=== PATIENT | female | born 1975 | race Caucasian/White ===

== ENCOUNTER → 2017-12-07 09:42 | Outpatient (CLI) | payer OTHER, SELFPAY ==
[2017-12-07 12:27] LABS: Anion Gap 7 (5-15); BUN 13 mg/dL (7-18); BUN/Creat Ratio 14.2 RATIO (10-20); Calcium,Total 8.5 mg/dL (8.5-10.1); Chloride 104 mmol/L (98-107); Cholesterol 203 mg/dL (200); Creatinine, Serum 0.91 mg/dL (0.55-1.02); EST Glomerular Filtration Rate 71 mL/min (>60); Est Glom Filt Rate - Afr Amer 86 mL/min (>60); Glucose 90 mg/dL (74-106); High Density Lipoprotein 43 mg/dL; Potassium 4.1 mmol/L (3.5-5.1); Sodium Level 139 mmol/L (136-145); Thyroid Stim Hormone (TSH) 1.68 uIU/mL (0.358-3.74); Triglycerides 137 mg/dL; Very Low Density Lipoprotein 27 mg/dL (5-40)
== END ==
PROVIDERS: Family Provider Family Medicine; PCP Family Medicine; Visit Provider Family Medicine
DX: Z13.1 Encounter for screening for diabetes mellitus (principal); Z13.220 Encounter for screening for lipoid disorders; Z13.29 Encounter for screening for other suspected endocrine disorder; Z13.21 Encounter for screening for nutritional disorder
CPT/HCPCS: 36415; 80048; 80061; 82306; 84443

== ENCOUNTER → 2018-02-01 08:57 | Outpatient (CLI) | payer OTHER, SELFPAY ==
[2018-02-06 11:17] LABS: HPV HC, High Risk Negative (Negative)
== END ==
PROVIDERS: PCP Family Medicine; Visit Provider Obstetrics & Gynecology
DX: Z12.4 Encounter for screening for malignant neoplasm of cervix (principal)
CPT/HCPCS: 87624; 88175; G0145

== ENCOUNTER → 2018-03-28 07:53 | Outpatient (CLI) | payer OTHER, SELFPAY ==
--- NOTE | 2018-03-28 07:57 | BI_ITS ---
MAMMOGRAPHY - BILATERAL SCREENING REASON FOR EXAM: Female, 42 years old. Routine annual screening examination. PERTINENT HISTORY: Mother with breast cancer. TECHNIQUE: Digital bilateral breast nadine (3D mammographic acquisition) in the CC and MLO projections. 2-D mediolateral oblique (MLO) and craniocaudad (CC) views of both breasts were obtained. CAD: Full Field Digital Mammography with Computer Added Detection was performed. COMPARISON: Comparison is made with prior study dated March 27, 2017 and August 27, 2015. FINDINGS: Breast Composition: There are scattered areas of fibroglandular density. There are no dominant masses or suspicious calcifications. No other significant abnormalities are identified. There has been no significant change since the prior study. BI/SCREENING MAMM (CAD), BILAT IMPRESSION: Stable bilateral screening mammogram. Yearly follow-up mammogram recommended. (A) ASSESSMENT CATEGORY: BIRADS Category 1: Negative. A letter regarding these results will be sent to the patient by the facility within 30 days. Approximately 10% of breast cancers are not detected by mammography. A normal mammogram should not delay biopsy of a clinically suspicious abnormality. [id number] Electronically Signed: Florian Anaya MD at 8:49 EST Tel [phone], Service support ,
--- OUTSIDE RECORDS SUMMARY | 2018-05-14 00:57 | XMS RPT_ITS ---
:1975 Author Organization [facility] Care Team Providers Name Role Phone Rodrick Mccarty Attending Unavailable Rakesh West Primary Care Unavailable Referred, Self Attending Unavailable Rakesh West Attending Unavailable Rakesh West Primary [facility] Unavailable Rodrick Mccarty Attending Unavailable PROBLEMS PROBLEMS DATE TYPE CONDITION / CODE ATTENDING STATUS SOURCE 02/01/2018 Unknown Z12.4 - Rodrick Mccarty Active [place] Encounter for Community screening for Hospital malignant Repository neoplasm of cervix / Z12.4(ICD-10) PROCEDURES PROCEDURES No Procedure Records FoundRESULTS RESULTS SCREENING MAMM (CAD), Observed: 03/28/2018 Status: F Source: [place] BILAT 7:57 AM [facility] REPOSITORY [facility] Imaging Services [address] [place] [address] SCREENING MAMM (CAD), BILAT MR#: [id number] Acct: [id number] Name: GARCIA RICKETTS Rep #: [id number] : 1975 F 42 From: Florian Anaya MD PCP: Rakesh West MD Status: REG CLI Study: SCREENING MAMM (CAD), BILAT Date of Exam: 03/28/18 Exam# [id number] Ordering Dr: Rodrick Mccarty MD MAMMOGRAPHY - BILATERAL SCREENING REASON FOR EXAM: Female, 42 years old. Routine annual screening examination. PERTINENT HISTORY: Mother with breast cancer. TECHNIQUE: Digital bilateral breast nadine (3D mammographic acquisition) in the CC and MLO projections. 2-D mediolateral oblique (MLO) and craniocaudad (CC) views of both breasts were obtained. CAD: Full Field Digital Mammography with Computer Added Detection was performed. COMPARISON: Comparison is made with prior study dated March 27, 2017 and August 27, 2015. FINDINGS: Breast Composition: There are scattered areas of fibroglandular density. There are no dominant masses or suspicious calcifications. No other significant abnormalities are identified. There has been no significant change since the prior study. BI/SCREENING MAMM (CAD), BILAT IMPRESSION: Stable bilateral screening mammogram. Yearly follow-up mammogram recommended. (A) ASSESSMENT CATEGORY: BIRADS Category 1: Negative. A letter regarding these results will be sent to the patient by the facility within 30 days. Approximately 10% of breast cancers are not detected by mammography. A normal mammogram should not delay biopsy of a clinically suspicious abnormality. [id number] Electronically Signed: Florian Anaya MD at 8:49 EST Tel [phone], Service support , CC: Rakesh West MD; Rodrick Mccarty MD Shuttle Driver: Signed PAP I-G HPV HI Collected: 02/01/2018 Status: F Source: [place] RISK 8:30 AM [facility] REPOSITORY Order Comment: CYTOLOGY INFORMATION: - CLINICAL INFORMATION: - DATE LMP/MENOPAUSE: 01-14-18 LMP - COLLECTION VIAL: Thin Prep Vial - POWDER ROOM ATTENDANT SOURCE: CERVICAL/ENDOCERVICAL - COLLECTION TECHNIQUE: BRUSH/SPATULA Specimen Comment: [id number] Specimen Comment: Source.............Cervix;Endocervix Specimen Comment: LMP / Prev Treat...[id number] Specimen Comment: No. of containers..01 ThinPrep Vial TYPE CODE TESTS RESULT OUT OF RANGE REFERENCE UNITS LAB L7400.0800 . Normal DIAGN Comment Result Comment: NEGATIVE FOR INTRAEPITHELIAL LESION AND MALIGNANCY. LAB L7400.0900 . Normal ADEQ Comment Result Comment: Satisfactory for evaluation. Endocervical and/or squamous metaplastic cells (endocervical component) are present. Areas of partially obscuring inflammtory exudate are present. LAB L7400.1400 . Normal PERFORM Comment Result Comment: Margie Shahid, Meteorological Engineer (ASCP) LAB L7400.2575 . Normal TEST METHOD Comment Result Comment: This liquid based ThinPrep(R) pap test was screened with the use of an image guided system. LAB L7400.2600 . Normal . COMM LAB L7400.2700 . Normal PAPSMR Comment Result Comment: The Pap smear is a screening test designed to aid in the detection of premalignant and malignant conditions of the uterine cervix. It is not a diagnostic procedure and should not be used as the sole means of detecting cervical cancer. Both false-positive and false-negative reports do occur. LAB L7400.2950 Negative Normal HPV Negative HC,HGH RISK Result Comment: This high-risk HPV test detects thirteen high-risk types (16/18/31/33/35/39/45/51/52/56/58/59/68) without differentiation. Performed at: [address] [id number] Vision Impaired Teacher: Shannan Self MD, Phone: [phone] Performed at: =[address] [id number] Vision Impaired Teacher: Shannan Self MD, Phone: [phone] Performed By: #### L7400.0375 #### [facility] (refer to report for specific site) refer to report for address and phone number VITAMIN D,25 HYDROXY Collected: 12/07/2017 Status: F Source: [place] 9:45 AM [facility] REPOSITORY Order Comment: Order Date: 12/05/17 Order Info: [id number] - VITD25 TYPE CODE TESTS RESULT OUT OF REFERENCE UNITS RANGE LAB L506.1000 29.95-100.01 ng/mL Low Vitamin D 28.0 25-OH Result Comment: Vitamin D 25(OH) Status Range Deficiency <20 ng/mL (50nmol/L) Insuffciency 20 - 30 ng/mL (50 - 75 nmol/L) Sufficiency 30 - 100 ng/mL (75 - 250 nmol/L) Toxicity >100 ng/mL (>250 nmol/L) Performed By: #### L506.1000, L500.2500, L500.4100, L501.9520 #### [facility] [address] [place], [address] BASIC METABOLIC Collected: 12/07/2017 Status: F Source: [place] PROFILE (BMP) 9:45 AM [facility] REPOSITORY Order Comment: Order Date: 12/05/17 Order Info: [id number] - BMP Order Info: [id number] - LIPID Order Info: 3016-3 - TSH TYPE CODE TESTS RESULT OUT OF RANGE REFERENCE UNITS LAB L501.0100 74-106 mg/dL Normal GLU 90 Result Comment: Please note revised GLUCOSE reference range effective 2017. LAB L501.1000 7-18 mg/dL Normal BUN 13 LAB L501.1100 0.55-1.02 mg/dL Normal CREAT,SERUM 0.91 Result Comment: The validity of the calculated GFR AND GFRAA in patients over 70 years has not been determined. Clinical correlation is essential. LAB L501.1110 >60 mL/min Normal EST GFR 71 Result Comment: Non- GFR Calc LAB L501.1115 >60 mL/min Normal EST GFR - AA 86 Result Comment: GFR Calc LAB L501.1300 10-20 RATIO Normal BUN/CRE 14.2 LAB L501.2200 8.5-10.1 mg/dL CA Normal 8.5 LAB L501.5300 136-145 mmol/L NA Normal 139 LAB L501.5600 3.5-5.1 mmol/L K Normal 4.1 LAB L501.5900 98-107 mmol/L CL Normal 104 LAB L501.6100 21.0-32.0 mmol/L Normal CO2 28.0 LAB L501.6200 5-15 Normal GAP 7 Performed By: #### L506.1000, L500.2500, L500.4100, L501.9520 #### [facility] [address] [place], [place], [id number] LIPID PROFILE Collected: 12/07/2017 Status: F Source: [place] 9:45 AM [facility] REPOSITORY Order Comment: Order Date: 12/05/17 Order Info: 0667-1 - BMP Order Info: [id number] - LIPID Order Info: 3016-3 - TSH TYPE CODE TESTS RESULT OUT OF RANGE REFERENCE UNITS LAB L501.4900 200 mg/dL High CHOL 203 Result Comment: <200 mg/dL Desirable 200-240 mg/dL Borderline >240 mg/dL High Risk LAB L501.5000 mg/dL Normal TRIG 137 Result Comment: The drugs N-Acetylcysteine and Metamizole may falsely depress this assay. Serum Triglycerides Reference Interval Normal <150 mg/dL Borderline high 150 - 199 mg/dL High 200 - 499 mg/dL Very High > or = 500 mg/dL LAB L501.6400 mg/dL Normal HDL 43 Result Comment: The drugs N-Acetylcysteine and Metamizole may falsely depress this assay. Reference Range HDL <40 mg/dL Low HDL Cholesterol HDL >or= 60 mg/dL High HDL Cholesterol LAB L501.6500 0-130 mg/dL High LDL 133 LAB L501.6600 5-40 mg/dL Normal VLDL 27 Performed By: #### L506.1000, L500.2500, L500.4100, L501.9520 #### [facility] [address] [place], [place], [id number] THYROID STIM HORMONE Collected: 12/07/2017 Status: F Source: [place] (TSH) 9:45 AM [facility] REPOSITORY Order Comment: Order Date: 12/05/17 Order Info: 0667-1 - BMP Order Info: 74997-8 - LIPID Order Info: 3016-3 - TSH TYPE CODE TESTS RESULT OUT OF RANGE REFERENCE UNITS LAB L501.9520 0.358-3.74 uIU/mL Normal TSH 1.68 Performed By: #### L506.1000, L500.2500, L500.4100, L501.9520 #### [facility] [address] [place], [address] ALLERGIES ALLERGIES DATE TYPE / CODE NAME / CODE REACTION SEVERITY SOURCE 08/05/2015 Drug No Known Unknown [facility] Allergy/4160 Allergies/F00 Hospital 56848(SNOMED 4703091(RXNOR Repository CT) M) ENCOUNTERS ENCOUNTERS ADMIT/DISCHARGE ACCOUNT ADMITTING ENCOUNTER LOCATION SOURCE NUMBER CLASS 05/04/2018 [id number] [place] [facility] ing:MASS Repository 03/28/2018 [id number] Ambulatory [place] 8 [facility] ing:OPBI Repository 02/01/2018 [id number] Amb[place] [facility] ing:LABSPEC Repository 12/07/2017 [id number] [facility] ing:MFPLAB Repository PAYERS PAYERS ENCOUNTER GUARANTOR PAYER SUBSCRIBER SOURCE 05/04/2018 GADIEL [id number] Primary NOT GIVENUNK [place] Insurance:SELF PAY [facility] [address]Vym: (330) Number: Effective Repository [phone] () Date:2017-06-28 03/28/2018 GADIEL [id number] Primary GADIEL RODRIGUEZB: [place] [facility] Insurance:[id number] Number: [facility] [address]Esq: (330) [id number] Repository [phone] () e Date:3292-03-89[address] [place] [address]SU: 03/28/2018 Secondary NOT GIVENUNK [place] Insurance:SELF PAY [facility] Number: Effective Repository Date:2018-02-08 02/01/2018 Gadiel [id number] Primary Gadiel MccuneDOB: [place] N Jonathan Chapvaleria Insurance[id number] Number: Hospital [id number]: (330 [id number] Repository [phone] () e Date:[id number] [address] [address]MY: 02/01/2018 Secondary NOT GIVENUNK [place] Insurance[facility]SELF [facility] Number: Effective Repository Date:2018-02-01 12/07/2017 Gadiel Ricketts8841 Primary Gadiel MccuneDOB: [place] N Jonathan Chapvaleria Insurance:[place] [id number], [place] icy Number: Hospital [id number]: (330 [id number] Repository [phone] () e Date:[id number] [address] [address]EH: 12/07/2017 Secondary NOT GIVENUNK [place] Insurance:SELF PAY [facility] Number: Effective Repository Date:2017-12-07
== END ==
PROVIDERS: PCP Family Medicine; Visit Provider Obstetrics & Gynecology
DX: Z12.31 Encounter for screening mammogram for malignant neoplasm of breast (principal)
CPT/HCPCS: 77063; 77067

== ENCOUNTER → 2018-11-06 16:28 | Outpatient (CLI) | payer OTHER, SELFPAY ==
--- NOTE | 2018-11-06 16:32 | RAD_ITS ---
HISTORY: Neck pain and left cervical radiculopathy XR Spine Cervical 4 or 5 Views TECHNIQUE: 5 views # of images incl. paperwork: 5 COMPARISON: 07/05/2016. FINDINGS: BONES: Cervical spine is in normal anatomic alignment. No acute fracture or subluxation. Odontoid process is intact. Cervical vertebra are normal in height. Unremarkable vertebral body morphology. DISCS: Mild disc space narrowing at C6-C7. Remaining disc spaces are well preserved. Oblique views demonstrate patent neural foramina bilaterally without bony encroachment. SOFT TISSUES: Prevertebral soft tissues are within normal limits. RAD/Cerv Spine 4 or 5 Views IMPRESSION: 1. Mild disc space narrowing at C6-C7, which is new when compared to June 2016. 2. Otherwise, unremarkable exam. at 2005 Reported and signed by: Elvin Castro MD Electronically Signed: Elvin Castro MD at 20:04 EDT Tel , Service support ,
== END ==
PROVIDERS: Family Provider Family Medicine; PCP Family Medicine; Referring Provider Family Medicine; Visit Provider Family Medicine
DX: M54.2 Cervicalgia (principal)
CPT/HCPCS: 72050

== ENCOUNTER 2018-12-27 08:30 | Outpatient (RCR) | payer OTHER, SELFPAY ==
--- NOTE | 2018-11-20 16:20 | HP.PTEVAL ---
Patient's Visit Information GARCIA BELLE is a 43 year old F referred to Physical Therapy by Marck West MD with a diagnosis of DDD C6-7. Date of Evaluation: 11/20/18 Physical Therapist: Orlando Bennett, PT, Cert MDT, OCS - Visit Plan Frequency: 2x /Week Duration: 4 Weeks Plan: PT INTEVENTIONS CHUNG EX'S,POSTURAL EX'S,MANUAL THERAPY CERVICAL TRACTION /STM,MOBILIZATION GR 3-4 C4-T2,MODALTIES - Subjective Findings: This 43 y/o female presents to physical therapy cervical pain and radicular since since July. Pateint symtoms started ache in left side ,then symptoms increased in left scapular region . Symptoms intermittant sharp pain ,no specific reason. Symptoms became worse after chiropractor adjustments. Patient c/o parathesia to fingers . Denies tinnutis /GLOVER/dizzness.Location pain left UT/scapular forearm to fingers ,occassionally left anterior chest. Seen DR tried predisone didnt help pain. Aggravating factors arms in front ,rotation to left ,flexion,sitting and working intermiitant. Alleviating rest,some MEDS. Patient symptoms affects ability to due [employer],job [employer]. Symptoms affect sleeping. Patient has had same symptoms one yuliet ago. PT helped last year. No n/o trauma.Patient had x-rays showed DDD c6-7,. VOCATION: DENTAL HYGINEIST. SOCIAL: - Pain Left Shoulder Pain Intensity (Out of 10): 6 Pain Intensity Range: 10 - Objective POSTURE: mild foward posture. NEURO: C/O parathesia/tingling fingers, reflexes C5-6-7 2/3,mytomes intact. PALAPTION: tender UT/levator. AROM: BUE WFL. MMT: BUE 4/5 grossly. CERVICAL ROM: flexion min loss,extension min loss,lateral flexion /rotation min loss ,retraction/protraction min loss - Special Tests C/S Radiculapathy - Left Upper limb tension test: Negative C/S Radiculapathy - Right Upper limb tension test: Negative C/S Radiculapathy - Left Spurlings: Negative C/S Radiculapathy - Right Spurlings: Negative C/S Radiculapathy - Left Cervical distraction: Negative C/S Radiculapathy - Right Cervical distraction: Negative Sharp Suzanne: Negative Vertebral Artery Test: Negative Alar Ligament Test: Negative Cervical Sitting: Protrusion - Mechanical Response: No effect Cervical Sitting: Protrusion - Symptoms During Testing: Increases Cervical Sitting: Protrusion - Symptoms After Testing: No worse Comments:: UT SCAPULAR Cervical Sitting: Retraction - Mechanical Response: No effect Cervical Sitting: Retraction - Symptoms During Testing: Increases Cervical Sitting: Retraction - Symptoms After Testing: Worse Comments:: UT/SCAPULAR Cervical Sitting: Retraction-Extension - Mechanical Response: No effect Cerv Sitting: Retraction-Extension - Symptoms During Testing: Increases Cerv Sitting: Retraction-Extension - Symptoms After Testing: Worse Comments:: UT/SCAPULAR Cervical Sitting: Sidebend Right - Mechanical Response: No effect Cervical Sitting: Sidebend Right - Symptoms During Testing: Increases Cervical Sitting: Sidebend Right - Symptoms After Testing: No worse Cervical Sitting: Sidebend Left - Mechanical Response: No effect Cervical Sitting: Sidebend Left - Symptoms During Testing: Increases Cervical Sitting: Sidebend Left - Symptoms After Testing: Worse Cervical Sitting: Rotation Right - Mechanical Response: No effect Cervical Sitting: Rotation Right - Symptoms During Testing: Increases Cervical Sitting: Rotation Right - Symptoms After Testing: No worse Cervical Sitting: Rotation Left - Mechanical Response: No effect Cervical Sitting: Rotation Left - Symptoms During Testing: Increases Cervical Sitting: Rotation Left - Symptoms After Testing: No worse Cervical Sitting: Flexion - Mechanical Response: No effect Cervical Sitting: Flexion - Symptoms During Testing: Increases Cervical Sitting: Flexion - Symptoms After Testing: Worse Cervical Lying: Retraction - Mechanical Response: No effect Cervical Lying: Retraction - Symptoms During Testing: Decreases Cervical Lying: Retraction - Symptoms After Testing: Better - Goals Goal 1:: Independant with HEP Goal Time Frame: 4-6 Weeks Goal 2:: Improve posture for job demands by to manage symptoms. Goal Time Frame: 4-6 Weeks Goal 3:: Pateint to improve cervical ROM for flexion of recovery with pain. Goal Time Frame: 4-6 Weeks Goal 4:: Patient to decrease cervical radiculopathy by 60% or greater to improve function. Goal Time Frame: 4-6 Weeks Goal 5:: Patient to improve neck owestry score by 5 points or greater to improve function. Goal Time Frame: 4-6 Weeks - Rehabilitation Potential Physical Therapy Diagnosis: This patient apperas to have cervical derrangement below elow with possible disc involvement with pain with motion test,postioning,worse with flexion and job demands unloaded retraction reduces pain. Rehabilitation Potential: Good - Anticipated Interventions Patient/Client Instruction: Educate patient on: Condition, Plan of Care For the Purpose of:: To decrease pain, To increase ROM, To improve muscle performance and motor function, To improve ability to perform ADL's, To increase tolerance to activity/condition/position, To improve ability of physical actions for home/community/work/leisure, To improve health of tissue, To decrease soft tissue restriction, To increase flexibility/ROM, To improve ability to perform tasks related to life management Therapeutic Exercise to Include: Strength training, Postural training, Flexibilty training, Chung Exercises For the Purpose of:: To decrease pain, To increase ROM, To improve muscle performance and motor function, To increase tolerance to activity/condition/position, To improve ability of physical actions for home/community/work/leisure, To improve health of tissue, To decrease soft tissue restriction, To increase flexibility/ROM, To reduce risk of recurrence, To improve ability to perform tasks related to life management Manual Therapy Techniques to Include: Mobilization Comment: CERVICAL TRACTION/ GRADE 3-4 C4-T2 For the Purpose of:: To decrease pain, To increase ROM, To improve health of tissue, To decrease soft tissue restriction, To increase flexibility/ROM TENS: Yes IF ES: Yes Thermo therapy (hot pack): Yes Ultrasound (thermal/non thermal): Yes Intermittent cervical traction: Yes For the Purpose of:: To decrease pain, To increase ROM, To improve nutrient delivery to tissue, To increase oxygenation perfusion, To improve health of tissue, To decrease soft tissue restriction Thank you for the opportunity to evaluate your patient. For Medicare and Medicare HMO plans, please review the plan of care and approve it. It will need to be FAXED BACK to us at [phone] for Medicare purposes. For Medicare only, by signing this I certify the plan of care. Please let me know if there are questions or concerns regarding this plan of care. Physician Signature: Date:
--- NOTE | 2019-01-30 12:21 | HP.PTDCNRP_ITS ---
HP - Discharge Summary (1) - Patient Information GARCIA BELLE was seen in my office for initial evaluation on 11/20/18. The following Plan of Care was established for this patient: Initial Frequency: 2x /Week Initial Duration: 4 Weeks - Anticipated Interventions Patient/Client Instruction: Educate patient on: Condition, Plan of Care For the Purpose of:: To decrease pain, To increase ROM, To improve muscle performance and motor function, To improve ability to perform ADL's, To increase tolerance to activity/condition/position, To improve ability of physical actions for home/community/work/leisure, To improve health of tissue, To decrease soft tissue restriction, To increase flexibility/ROM, To improve ability to perform tasks related to life management Therapeutic Exercise to Include: Strength training, Postural training, Flexibilty training, Shantel Exercises For the Purpose of:: To decrease pain, To increase ROM, To improve muscle performance and motor function, To increase tolerance to activity/condition/position, To improve ability of physical actions for home/community/work/leisure, To improve health of tissue, To decrease soft tissue restriction, To increase flexibility/ROM, To reduce risk of recurrence, To improve ability to perform tasks related to life management Manual Therapy Techniques to Include: Mobilization Comment: CERVICAL TRACTION/ GRADE 3-4 C4-T2 For the Purpose of:: To decrease pain, To increase ROM, To improve health of tissue, To decrease soft tissue restriction, To increase flexibility/ROM TENS: Yes IF ES: Yes Thermo therapy (hot pack): Yes Ultrasound (thermal/non thermal): Yes Intermittent cervical traction: Yes For the Purpose of:: To decrease pain, To increase ROM, To improve nutrient d elivery to tissue, To increase oxygenation perfusion, To improve health of tissue, To decrease soft tissue restriction This patient was last seen in our office . Pertinent comments regarding their Physical therapy will appear below: Pateint seen for PT for 9 visits for DDD cervical spien with radiculopathy with PT tx focusing on cercvical postural ex's,shantel ,drt needling,manual therapy . Symptoms with parathesai in arm is unchange with symptoms intermttant. At this point I will be discontinuing this patient from physical therapy. I would be happy to see this patient again in the future if found appropriate by the physician. Thank you! Orlando Bennett, PT, Cert MDT, OCS
== END 2018-12-27 19:00 | disposition home or self-care (01) ==
LOC: PT 08:30
PROVIDERS: Family Provider Family Medicine; PCP Family Medicine; Referring Provider Family Medicine; Visit Provider Family Medicine
DX: M50.323 Other cervical disc degeneration at C6-C7 level (principal)
CPT/HCPCS: 97035; 97110; 97140; 97162

== ENCOUNTER → 2019-02-28 09:00 | Outpatient (CLI) | payer OTHER, SELFPAY ==
[2019-02-28 10:29] LABS: Cholesterol 209 mg/dL (200); High Density Lipoprotein 62 mg/dL; Triglycerides 70 mg/dL; Very Low Density Lipoprotein 14 mg/dL (5-40)
[2019-02-28 10:30] LABS: Vitamin D,25 Hydroxy 48.6 ng/mL (29.95-100.01)
== END ==
PROVIDERS: Family Provider Family Medicine; PCP Family Medicine; Referring Provider Family Medicine; Visit Provider Family Medicine
DX: Z13.220 Encounter for screening for lipoid disorders (principal); E55.9 Vitamin D deficiency, unspecified
CPT/HCPCS: 36415; 80061; 82306

== ENCOUNTER → 2019-05-08 07:38 | Outpatient (CLI) | payer OTHER, SELFPAY ==
[2019-04-24 08:33] VITALS: BMI 27.1
--- NOTE | 2019-05-08 07:40 | BI_ITS ---
MAMMOGRAPHY - BILATERAL SCREENING REASON FOR EXAM: Female, 43 years old. Routine annual screening examination. PERTINENT HISTORY: Non-contributory. TECHNIQUE: Digital bilateral breast preston (3D mammographic acquisition) in the CC and MLO projections. 2-D mediolateral oblique (MLO) and craniocaudad (CC) views of both breasts were obtained. CAD: Full Field Digital Mammography with Computer Added Detection was performed. COMPARISON: Comparison is made with prior study dated March 28, 2018 and March 27, 2017. FINDINGS: Breast Composition: There are scattered areas of fibroglandular density. There are no dominant masses or suspicious calcifications. No other significant abnormalities are identified. There has been no significant change since the prior study. BI/SCREEN MAMM (CAD) W/PRESTON BILAT IMPRESSION: Stable bilateral screening mammogram. Yearly follow-up mammogram recommended. (A) ASSESSMENT CATEGORY: BIRADS Category 1: Negative. A letter regarding these results will be sent to the patient by the facility within 30 days. Approximately 10% of breast cancers are not detected by mammography. A normal mammogram should not delay biopsy of a clinically suspicious abnormality. [id number] Electronically Signed: Florina Anaya, at 8:46 EST , Service support ,
== END ==
PROVIDERS: Family Provider Family Medicine; PCP Family Medicine; Referring Provider Nurse Practitioner Women's Health; Visit Provider Nurse Practitioner Women's Health
DX: Z12.31 Encounter for screening mammogram for malignant neoplasm of breast (principal)
CPT/HCPCS: 77063; 77067

== ENCOUNTER → 2020-03-22 | Outpatient (CLI) | payer OTHER, SELFPAY ==
[2019-04-24 08:33] VITALS: BMI 27.1
== END | disposition home or self-care (01) ==
PROVIDERS: PCP Family Medicine; Referring Provider Family Medicine; Visit Provider Family Medicine
DX: R30.0 Dysuria (principal)
CPT/HCPCS: 87086; 87088

== ENCOUNTER → 2020-04-29 | Outpatient (CLI) | payer OTHER, SELFPAY ==
[2020-04-29 09:07] VITALS: BMI 25.9
[2020-05-04 09:45] LABS: HPV APTIMA, High Risk Negative (Negative)
== END | disposition home or self-care (01) ==
LOC: LABSPEC 12:36
PROVIDERS: PCP Family Medicine; Referring Provider Nurse Practitioner Women's Health; Visit Provider Nurse Practitioner Women's Health
DX: Z12.4 Encounter for screening for malignant neoplasm of cervix (principal)
CPT/HCPCS: 87624; 88175; G0145

== ENCOUNTER → 2020-05-13 07:36 | Outpatient (CLI) | payer OTHER, SELFPAY ==
[2019-04-24 08:33] VITALS: BMI 27.1
[2020-04-29 09:07] VITALS: BMI 25.9
--- NOTE | 2020-05-13 07:43 | BI_ITS ---
MAMMOGRAPHY - BILATERAL SCREENING REASON FOR EXAM: Female, 44 years old. Routine annual screening examination. PERTINENT HISTORY: Mother with breast cancer. TECHNIQUE: Digital bilateral breast preston (3D mammographic acquisition) in the CC and MLO projections. 2-D mediolateral oblique (MLO) and craniocaudad (CC) views of both breasts were obtained. CAD: Full Field Digital Mammography with Computer Added Detection was performed. COMPARISON: Comparison is made with prior study dated 05/08/2019 and 03/28/2018. FINDINGS: Breast Composition: There are scattered areas of fibroglandular density. There are no dominant masses or suspicious calcifications. No other significant abnormalities are identified. There has been no significant change since the prior study. BI/SCRN MAMM (CAD)W/PRESTON BILAT IMPRESSION: Stable bilateral screening mammogram. Yearly follow-up mammogram recommended. (A) ASSESSMENT CATEGORY: BIRADS Category 1: Negative. A letter regarding these results will be sent to the patient by the facility within 30 days. Approximately 10% of breast cancers are not detected by mammography. A normal mammogram should not delay biopsy of a clinically suspicious abnormality. [id number] Electronically Signed: Florian Anaya MD at 8:21 EST , Service support ,
== END ==
PROVIDERS: PCP Family Medicine; Referring Provider Nurse Practitioner Women's Health; Visit Provider Nurse Practitioner Women's Health
DX: Z12.31 Encounter for screening mammogram for malignant neoplasm of breast (principal); Z80.3 Family history of malignant neoplasm of breast
CPT/HCPCS: 77063; 77067

== ENCOUNTER → 2020-05-18 | Outpatient (CLI) | payer OTHER, SELFPAY ==
[2020-04-29 09:07] VITALS: BMI 25.9
== END | disposition home or self-care (01) ==
LOC: LABSPEC 10:04
PROVIDERS: PCP Family Medicine; Referring Provider Family Medicine; Visit Provider Family Medicine
DX: Z20.822 Contact with and (suspected) exposure to COVID-19 (principal)
CPT/HCPCS: 87635; U0005; U0003

== ENCOUNTER → 2020-09-08 08:36 | Outpatient (CLI) | payer OTHER, SELFPAY ==
[2020-04-29 09:07] VITALS: BMI 25.9
[2020-09-08 10:37] LABS: ALB/GLOB Ratio 1.1 RATIO (0.9-2.4); AST(SGOT) 26 U/L (15-37); Alanine Aminotransfer ALT/SGPT 32 U/L (13-56); Albumin, Serum 3.9 g/dL (3.2-5.0); Alkaline Phosphatase 78 U/L (45-117); Anion Gap 3 (5-15); BUN 17 mg/dL (7-18); BUN/Creat Ratio 19.8 RATIO (10-20); Calcium,Total 8.8 mg/dL (8.5-10.1); Chloride 105 mmol/L (98-107); Cholesterol 232 mg/dL (200); Creatinine, Serum 0.86 mg/dL (0.55-1.02); EST Glomerular Filtration Rate 76 mL/min (>60); Est Glom Filt Rate - Afr Amer 91 mL/min (>60); Globulin 3.4 g/dL (2.2-4.2); Glucose 87 mg/dL (74-106); High Density Lipoprotein 64 mg/dL; Potassium 3.8 mmol/L (3.5-5.1); Protein, Total 7.3 g/dL (6.4-8.2); Sodium Level 137 mmol/L (136-145); Thyroid Stim Hormone (TSH) 2.74 uIU/mL (0.358-3.74); Triglycerides 65 mg/dL; Very Low Density Lipoprotein 13 mg/dL (5-40)
[2020-09-09 12:14] LABS: Vitamin D,25 Hydroxy 76.1 ng/mL
== END ==
PROVIDERS: PCP Family Medicine; Referring Provider Family Medicine; Visit Provider Family Medicine
DX: Z13.220 Encounter for screening for lipoid disorders (principal); Z13.29 Encounter for screening for other suspected endocrine disorder; I10 Essential (primary) hypertension; E55.9 Vitamin D deficiency, unspecified
CPT/HCPCS: 36415; 80053; 80061; 82306; 84443

== ENCOUNTER → 2020-12-29 | Outpatient (CLI) | payer OTHER, SELFPAY | END | disposition home or self-care (01) | LOC: LABSPEC 16:54 | PROVIDERS: PCP Family Medicine; Referring Provider Family Medicine; Visit Provider Family Medicine | DX: U07.1 COVID-19 (principal) | CPT/HCPCS: 87635; U0005; U0003 ==

== ENCOUNTER 2021-05-20 09:58 | Outpatient (CLI) | payer OTHER, SELFPAY ==
--- NOTE | 2021-05-20 10:00 | BI_ITS ---
MAMMOGRAPHY - BILATERAL SCREENING REASON FOR EXAM: Female, 45 years old. Routine annual screening examination. PERTINENT HISTORY: Mother with breast cancer. TECHNIQUE: Digital bilateral breast preston (3D mammographic acquisition) in the CC and MLO projections. 2-D mediolateral oblique (MLO) and craniocaudad (CC) views of both breasts were obtained. CAD: Full Field Digital Mammography with Computer Added Detection was performed. COMPARISON: Comparison is made with prior study dated 11/10/2020 and 05/08/2019. FINDINGS: Breast Composition: There are scattered areas of fibroglandular density. There are no dominant masses or suspicious calcifications. No other significant abnormalities are identified. There has been no significant change since the prior study. BI/SCRN MAMM (CAD)W/PRESTON BILAT IMPRESSION: Stable bilateral screening mammogram. Yearly follow-up mammogram recommended. (A) ASSESSMENT CATEGORY: BIRADS Category 1: Negative. A letter regarding these results will be sent to the patient by the facility within 30 days. Approximately 10% of breast cancers are not detected by mammography. A normal mammogram should not delay biopsy of a clinically suspicious abnormality. [id number] Electronically Signed: Florian Anaya MD at 11:13 EST ,
== END 2021-05-20 23:59 | disposition short-term general hospital (02) ==
LOC: OPBI 09:58
PROVIDERS: PCP Family Medicine; Referring Provider Nurse Practitioner Women's Health; Visit Provider Nurse Practitioner Women's Health
DX: Z12.31 Encounter for screening mammogram for malignant neoplasm of breast (principal)
CPT/HCPCS: 77063; 77067

== ENCOUNTER 2021-07-13 14:46 | Outpatient (CLI) | payer OTHER, SELFPAY ==
--- NOTE | 2021-07-13 14:51 | US_ITS ---
EXAM: US pelvis complete, transabdominal and transvaginal. HISTORY: AUB TECHNIQUE: US Transvaginal Non-OB COMPARISON: None. LIMITATIONS: None. UTERUS Size: Uterus measures 9.3 x 5.8 x 4.9 cm in diameter. Orientation: Anteverted. Endometrial echo: Endometrial stripe measures 7 mm in thickness. On the axial images of the uterus, the endometrium appears more prominent and inhomogeneous, with slight window-shade shadowing, suspicious for adenomyosis. Masses: Mildly heterogeneous myometrium. A 10 x 7 x 5 mm ovoid hypoechoic submucosal fibroid noted anteriorly within the uterine fundus. A small sonolucent benign nabothian cyst is incidentally noted within the cervix. Also within the cervix is an adjacent 6 x 7 mm rounded hypoechoic focus, most likely a nabothian cyst containing a small amount of cellular debris. RIGHT OVARY Size: Right ovary is visualized and measures 3.2 cm in length. Masses: Right ovary contains a 1.7 x 2.0 x 1.5 cm ovoid thin-walled unilocular anechoic lesion, consistent with a dominant follicle. Vascularity: Normal Doppler signal. LEFT OVARY: Not visualized. ADNEXA: No masses or fluid collections. CUL-DE-SAC: No masses or fluid collections. CONCLUSION: Mildly enlarged uterus with a 10 mm anterior submucosal fibroid. Findings suspicious for uterine adenomyosis, and BED BUG EXTERMINATOR follow-up may be of benefit. Dominant follicle in the right ovary. Electronically Signed: James Linares MD at 1:53 EDT , US/Transvaginal Non-
--- NOTE | 2021-07-13 14:51 | US_ITS ---
EXAM: US pelvis complete, transabdominal and transvaginal. HISTORY: AUB TECHNIQUE: US Transvaginal Non-OB COMPARISON: None. LIMITATIONS: None. UTERUS Size: Uterus measures 9.3 x 5.8 x 4.9 cm in diameter. Orientation: Anteverted. Endometrial echo: Endometrial stripe measures 7 mm in thickness. On the axial images of the uterus, the endometrium appears more prominent and inhomogeneous, with slight window-shade shadowing, suspicious for adenomyosis. Masses: Mildly heterogeneous myometrium. A 10 x 7 x 5 mm ovoid hypoechoic submucosal fibroid noted anteriorly within the uterine fundus. A small sonolucent benign nabothian cyst is incidentally noted within the cervix. Also within the cervix is an adjacent 6 x 7 mm rounded hypoechoic focus, most likely a nabothian cyst containing a small amount of cellular debris. RIGHT OVARY Size: Right ovary is visualized and measures 3.2 cm in length. Masses: Right ovary contains a 1.7 x 2.0 x 1.5 cm ovoid thin-walled unilocular anechoic lesion, consistent with a dominant follicle. Vascularity: Normal Doppler signal. LEFT OVARY: Not visualized. ADNEXA: No masses or fluid collections. CUL-DE-SAC: No masses or fluid collections. CONCLUSION: Mildly enlarged uterus with a 10 mm anterior submucosal fibroid. Findings suspicious for uterine adenomyosis, and TABLET COATER follow-up may be of benefit. Dominant follicle in the right ovary. Electronically Signed: James Linares MD at 1:53 EDT , US/Pelvic (Non )
== END 2021-07-13 23:59 | disposition home or self-care (01) ==
LOC: US 14:49
PROVIDERS: PCP Family Medicine; Referring Provider Nurse Practitioner Women's Health; Visit Provider Nurse Practitioner Women's Health
DX: N93.9 Abnormal uterine and vaginal bleeding, unspecified (principal)
CPT/HCPCS: 76830; 76856

== ENCOUNTER 2021-07-14 08:33 | Outpatient (CLI) | payer OTHER, SELFPAY ==
[2021-07-14 10:07] LABS: Absolute Lymphocyte Count 1.76 X10^3/uL (0.83-4.51); Absolute Neutrophil Count 3.4 X10^3/uL (2.0-7.7); Basophil# 0.03 X10^3/uL; Basophil% 0.5 % (0-1); Eosinophil# 0.05 X10^3/uL; Eosinophils% 0.9 % (0-5); Hematocrit 41.5 % (37-47); Hemoglobin 14.2 g/dL (12.0-15.0); Lymphocyte # 1.76 X10^3/ul (0.83-4.51); Lymphocyte % 30.9 % (19-41); Mean Corp Hgb Conc 34.2 g/dL (32-36); Mean Corpuscular Hgb 28.9 pg (27.0-32.0); Mean Corpuscular Volume 84.3 fL (81-99); Monocyte# 0.45 X10^3/uL; Monocyte% 7.9 % (0-10); NRBC Flagged by Analyzer 0 % (0-5); Neutrophil # 3.38 X10^3/uL (2.7-7.7); Neutrophil % 59.4 % (47-70); Platelet Count 262 K/mm3 (150-450); RBC Distribution Width CV 12.9 % (11.6-14.6); RBC Distribution Width SD 39.5 fl (35.1-43.9); Red Blood Count 4.92 M/mm3 (4.2-5.4); White Blood Count 5.7 K/mm3 (4.4-11.0)
[2021-07-14 10:52] LABS: Cholesterol 210 mg/dL (200); High Density Lipoprotein 55 mg/dL; Triglycerides 67 mg/dL; Very Low Density Lipoprotein 13 mg/dL (5-40)
== END 2021-07-14 23:59 | disposition home or self-care (01) ==
LOC: MTLAB 08:34
PROVIDERS: PCP Family Medicine; Referring Provider Nurse Practitioner Women's Health; Visit Provider Nurse Practitioner Women's Health
DX: R23.2 Flushing (principal); N93.9 Abnormal uterine and vaginal bleeding, unspecified; E78.5 Hyperlipidemia, unspecified; Z13.29 Encounter for screening for other suspected endocrine disorder
CPT/HCPCS: 36415; 80061; 84443; 85025

== ENCOUNTER 2021-07-20 16:30 | Outpatient (CLI) | payer OTHER, SELFPAY ==
--- NOTE | 2021-07-20 14:20 | EMB_PTH ---
PATIENT: GARCIA BELLE LOC: [facility] U#:[id number] AGE/SX: 45/F ROOM: RE07/20/[address]: VERONICA Yeh : 1975 BED: DIS: 07/20/2021 SPEC #: [id number] RECD: 07/20/21 16:20 STATUS: MYLA REJuana #: [id number] ARASELI: 07/20/21 14:[address]: Shikha Trinh NP DEPT: SURGICAL PATHOLOGY RECD BY: Sharon Perez ENTERED: 07/21/21 08:41 SP TYPE: ENDOM BX/C OSMAN DR: Dr. Rakesh West MD Tissues: Endometrium, NOS Procedures: Surgery Specimen Level IV HEADER OPERATION: Endometrial biopsy PRE-OP DIAGNOSIS: Abnormal uterine bleeding TISSUE SUBMITTED: Endometrial biopsy MICROSCOPIC DIAGNOSIS Endometrium, biopsy: Mildly disordered proliferative endometrium with focal glandular breakdown. AM:quan 07/22/2021 MICROSCOPIC DESCRIPTION Slides are reviewed. GROSS DESCRIPTION Received is one container labeled with the patient's name and not further designated. The specimen consists of multiple fragments of hemorrhagic mucoid tissue that in aggregate measure 2 x 2 x 0.1 cm. The specimen is totally submitted in one cassette. / GEOVANNA:quan 07/21/2021 TC:5 CPT: 18349
== END 2021-07-20 23:59 | disposition home or self-care (01) ==
LOC: LABSPEC 16:33
PROVIDERS: PCP Family Medicine; Referring Provider Nurse Practitioner Women's Health; Visit Provider Nurse Practitioner Women's Health
DX: N93.9 Abnormal uterine and vaginal bleeding, unspecified (principal)
CPT/HCPCS: 88305

== ENCOUNTER → 2021-11-09 | Outpatient (CLI) | payer OTHER, SELFPAY | END | disposition home or self-care (01) | PROVIDERS: PCP Family Medicine; Visit Provider Family Medicine | DX: R30.0 Dysuria (principal) | CPT/HCPCS: 87086; 87088; 87186 ==

== ENCOUNTER → 2022-05-26 | Outpatient (CLI) | payer OTHER, SELFPAY ==
--- NOTE | 2022-05-26 08:38 | BI_ITS ---
MAMMOGRAPHY - BILATERAL SCREENING REASON FOR EXAM: Female, 46 years old. Routine annual screening examination. PERTINENT HISTORY: Mother with breast cancer. TECHNIQUE: Digital bilateral breast preston (3D mammographic acquisition) in the CC and MLO projections. 2-D mediolateral oblique (MLO) and craniocaudad (CC) views of both breasts were obtained. CAD: Full Field Digital Mammography with Computer Added Detection was performed. COMPARISON: Comparison is made with prior study dated 05/20/2021 and 11/10/2020. FINDINGS: Breast Composition: There are scattered areas of fibroglandular density. There are no dominant masses or suspicious calcifications. No other significant abnormalities are identified. There has been no significant change since the prior study. BI/SCRN MAMM (CAD)W/PRESTON BILAT IMPRESSION: Stable bilateral screening mammogram. Yearly follow-up mammogram recommended. (A) ASSESSMENT CATEGORY: BIRADS Category 1: Negative. A letter regarding these results will be sent to the patient by the facility within 30 days. Approximately 10% of breast cancers are not detected by mammography. A normal mammogram should not delay biopsy of a clinically suspicious abnormality. [id number] Electronically Signed: Florian Anaya MD at 9:36 EST ,
== END | disposition home or self-care (01) ==
LOC: OPBI 08:37
PROVIDERS: PCP Family Medicine; Referring Provider Nurse Practitioner Women's Health; Visit Provider Nurse Practitioner Women's Health
DX: Z12.31 Encounter for screening mammogram for malignant neoplasm of breast (principal); Z80.3 Family history of malignant neoplasm of breast
CPT/HCPCS: 77063; 77067

== ENCOUNTER → 2023-04-05 | Outpatient (CLI) | payer OTHER, SELFPAY ==
[2023-04-05 10:43] LABS: Vitamin D,25 Hydroxy 89.1 ng/mL
[2023-04-05 10:51] LABS: Anion Gap 5 (5-15); BUN 19 mg/dL (7-18); BUN/Creat Ratio 17.6 RATIO (10-20); Calcium,Total 9.5 mg/dL (8.5-10.1); Chloride 104 mmol/L (98-107); Cholesterol 234 mg/dL (200); Creatinine, Serum 1.08 mg/dL (0.55-1.02); EST Glomerular Filtration Rate 58 mL/min (>60); Est Glom Filt Rate - Afr Amer 70 mL/min (>60); Glucose 94 mg/dL (74-106); High Density Lipoprotein 50 mg/dL; Potassium 3.9 mmol/L (3.5-5.1); Sodium Level 140 mmol/L (136-145); Thyroid Stim Hormone (TSH) 1.22 uIU/mL (0.358-3.74); Triglycerides 119 mg/dL; Very Low Density Lipoprotein 24 mg/dL (5-40)
== END | disposition home or self-care (01) ==
LOC: MFPLAB 08:14
PROVIDERS: PCP Family Medicine; Visit Provider Family Medicine
DX: I10 Essential (primary) hypertension (principal); E55.9 Vitamin D deficiency, unspecified; F32.A Depression, unspecified
CPT/HCPCS: 36415; 80048; 80061; 82306; 84443

== ENCOUNTER → 2023-06-01 | Outpatient (CLI) | payer OTHER, SELFPAY ==
--- NOTE | 2023-06-01 09:09 | BI_ITS ---
MAMMOGRAPHY - BILATERAL SCREENING REASON FOR EXAM: Female, 47 years old. Routine annual screening examination. PERTINENT HISTORY: Mother with breast cancer. TECHNIQUE: Digital bilateral breast preston (3D mammographic acquisition) in the CC and MLO projections. 2-D mediolateral oblique (MLO) and craniocaudad (CC) views of both breasts were obtained. CAD: Full Field Digital Mammography with Computer Added Detection was performed. COMPARISON: Comparison is made with prior study dated May 26, 2022 and May 20, 2021. FINDINGS: Breast Composition: There are scattered areas of fibroglandular density. There are no dominant masses or suspicious calcifications. No other significant abnormalities are identified. There has been no significant change since the prior study. BI/SCRN MAMM (CAD)W/PRESTON BILAT IMPRESSION: Stable bilateral screening mammogram. Yearly follow-up mammogram recommended. (A) ASSESSMENT CATEGORY: BIRADS Category 1: Negative. A letter regarding these results will be sent to the patient by the facility within 30 days. Approximately 10% of breast cancers are not detected by mammography. A normal mammogram should not delay biopsy of a clinically suspicious abnormality. [id number] Electronically Signed: Florian Anaya MD at 9:48 EST ,
== END | disposition home or self-care (01) ==
LOC: OPBI 09:09
PROVIDERS: PCP Family Medicine; Referring Provider Nurse Practitioner Women's Health; Visit Provider Nurse Practitioner Women's Health
DX: Z12.31 Encounter for screening mammogram for malignant neoplasm of breast (principal); Z80.3 Family history of malignant neoplasm of breast
CPT/HCPCS: 77063; 77067

== ENCOUNTER → 2024-03-21 | Outpatient (CLI) | payer OTHER, SELFPAY ==
[2024-03-21 10:09] LABS: Vitamin D,25 Hydroxy 77.7 ng/mL
[2024-03-21 10:39] LABS: ALB/GLOB Ratio 1.3 RATIO (0.9-2.4); AST(SGOT) 21 U/L (15-37); Alanine Aminotransfer ALT/SGPT 22 U/L (13-56); Alkaline Phosphatase 83 U/L (45-117); Anion Gap 7 (5-15); BUN 21 mg/dL (7-18); BUN/Creat Ratio 20.4 RATIO (10-20); Calcium,Total 9.1 mg/dL (8.5-10.1); Chloride 105 mmol/L (98-107); Cholesterol 241 mg/dL (200); Creatinine, Serum 1.03 mg/dL (0.55-1.02); EST Glomerular Filtration Rate 60 mL/min (>60); Est Glom Filt Rate - Afr Amer 73 mL/min (>60); Glucose 92 mg/dL (74-106); High Density Lipoprotein 62 mg/dL; Potassium 4.1 mmol/L (3.5-5.1); Sodium Level 140 mmol/L (136-145); Triglycerides 126 mg/dL; Very Low Density Lipoprotein 25 mg/dL (5-40)
== END | disposition home or self-care (01) ==
LOC: MFPLAB 08:06
PROVIDERS: PCP Family Medicine; Visit Provider Family Medicine
DX: Z00.00 Encounter for general adult medical examination without abnormal findings (principal); E55.9 Vitamin D deficiency, unspecified; F32.A Depression, unspecified; I10 Essential (primary) hypertension
CPT/HCPCS: 36415; 80053; 80061; 82306; 84443

== ENCOUNTER → 2024-06-05 | Outpatient (CLI) | payer OTHER, SELFPAY ==
--- NOTE | 2024-06-05 08:13 | BI_ITS ---
PROCEDURE: SCRN MAMM (CAD)W/PRESTON BILAT REASON FOR EXAM: F, Age 48 y/o, mother with breast cancer. TECHNIQUE: Bilateral screening digital breast tomosynthesis with 2D and 3D images. Computer aided detection. COMPARISON: Prior exam(s) dating back to June 01, 2023.. FINDINGS: There are scattered areas of fibroglandular density. Stable examination. No suspicious masses, areas of developing architectural distortion, or suspicious calcifications. BI/SCRN MAMM (CAD)W/PRESTON BILAT IMPRESSION: BI-RADS 1: NEGATIVE. RECOMMEND ANNUAL MAMMOGRAPHIC SCREENING. Follow-up code: Routine Follow-up The patient will be notified of the results by letter. Reading Location: [facility]
== END | disposition home or self-care (01) ==
LOC: OPBI 08:11
PROVIDERS: PCP Family Medicine; Referring Provider Nurse Practitioner Women's Health; Visit Provider Nurse Practitioner Women's Health
DX: Z12.31 Encounter for screening mammogram for malignant neoplasm of breast (principal)
CPT/HCPCS: 77063; 77067

== ENCOUNTER → 2024-08-13 | Outpatient (CLI) | payer OTHER, SELFPAY ==
[2024-08-15 08:08] LABS: Thyroid Peroxidase AB < 9 IU/mL (0-34)
== END | disposition home or self-care (01) ==
PROVIDERS: PCP Family Medicine; Referring Provider Nurse Practitioner Women's Health; Visit Provider Nurse Practitioner Women's Health
DX: R63.5 Abnormal weight gain (principal); R23.2 Flushing; Z13.29 Encounter for screening for other suspected endocrine disorder; Z80.0 Family history of malignant neoplasm of digestive organs; Z80.3 Family history of malignant neoplasm of breast
CPT/HCPCS: 36415; 84439; 84443; 86376

== ENCOUNTER → 2025-04-02 | Outpatient (CLI) | payer OTHER, SELFPAY ==
--- OUTSIDE RECORDS SUMMARY | 2025-04-02 07:32 | XMS RPT_ITS | CCD ---
Author Organization [facility] Inform ion [facility] Care Team Providers Care Manager Credit Risk Name Role Phone Dr. Marck West Primary Care Provider [phone] Dr. Marck West Referring Provider Gayathri VEST BASTER, VERONICA Trivedi Attending Provider Shikha Trinh Attending Unavailable Shikha Trinh Referring Unavailable Rakesh West Primary Care Unavailable Rakesh West Primary Care Unavailable Rakesh West Attending Unavailable Rakesh West Primary Care Unavailable Shikha Trinh Attending Unavailable Shikha Trinh Referring Unavailable Rakesh West Referring Unavailable Shikha Trinh Attending Unavailable Rakesh West Primary Care Unavailable Medications Current Medications Medication Drug Class(es) Dates Sig (Normalized) Sig (Original) cholecalciferol 0.125 mg oral capsule (9 sources) Vitamin D Start: 04-29-2020 take 125 ug by mouth once daily Cholecalciferol (Vitamin D3) Active 125 MCG PO DAILY April 29, 2020 12:00am fexofenadine hydrochloride 180 mg oral tablet (9 sources) Histamine-1 Receptor Antagonist Start: 04-24-2019 take 1 tablet by mouth once daily Fexofenadine (Mariann Allergy) 180 mg tablet Active 180 MG PO DAILY April 24, 2019 12:00am lisinopril 20 mg oral tablet (9 sources) Angiotensin Converting Enzyme Inhibitor Start: 04-29-2020 take 20 mg by mouth once daily Lisinopril Active 20 MG PO DAILY April 29, 2020 12:00am Multivitamin preparation (9 sources) Start: 04-29-2020 take 1 tablet by mouth once daily Multivitamin Active 1 TABLET PO DAILY April 29, 2020 10:04am Start: 04-29-2020 take 1 tablet by gaurang th once daily Multivitamin Active 1 TABLET PO DAILY April 29, 2020 12:00am Start: 04-29-2020 take 1 tablet by gaurang th once daily Multivitamin Active 1 TABLET PO DAILY April 29, 2020 1:00am psyllium 400 mg oral capsule (9 sources) Start: 07-06-2021 Psyllium Husk (Metamucil) 0.4 gram capsule Active 0.4 GM PO DAILY July 05, 2021 11:00pm saccharomyces boulardii 250 mg oral capsule (2 sources) Start: 07-27-2022 take 1 capsule by mouth twice daily Saccharomyces Boulardii (Daily Probiotic (S. Boulardii)) 250 mg capsule Active 250 MG PO TWICE A DAY July 26, 2022 11:00pm traZODone hydrochloride 100 mg oral tablet (9 sources) Serotonin Reuptake Inhibitor Start: 08-05-2015 take 100 mg by mouth at bedtime Trazodone Active 100 MG PO AT BEDTIME August 04, 2015 11:00pm 24 hr venlafaxine 75 mg extended release oral capsule (18 sources) Serotonin and Norepinephrine Reuptake Inhibitor Start: 04-29-2020 take 112.5 mg by mouth once daily Venlafaxine Active 112.5 MG PO DAILY April 29, 2020 9:03am Start: 08-05-2015 End: 04-29-2020 take 75 mg by mouth once daily Venlafaxine Discontinue d 75 MG PO DAILY August 04, 2015 11:00pm April 29, 2020 9:05am Completed/Discontinued Medications Medication Drug Class(es) Dates Sig (Normalized) Sig (Original) acetaminophen 325 mg / HYDROcodone bitartrate 5 mg oral tablet (9 sources) Opioid Agonist Start: 08-05-2015 End: 04-24-2019 take 1 tablet by mouth every four hours as needed Hydrocodone-Acetam inophen Discontinued 1 TABLET PO EVERY 4 HOURS NEEDED August 04, 2015 11:00pm April 24, 2019 8:17am Cranberry (9 sources) Non-Standardized Food Allergenic Extract, Non-Standardized Plant Allergenic Extract Start: 04-29-2020 End: 07-06-2021 take 1500 mg by mouth twice daily at mealtime Cranberry Discontinued 1500 MG PO TWICE A DAY April 29, 2020 10:04am July 06, 2021 3:13pm administer with meals Start: 04-29-2020 End: 07-06-2021 take 1500 mg by mouth twice daily at mealtime Cranberry Discontinued 1500 MG PO TWICE A DAY April 29, 2020 12:00am July 06, 2021 2:13pm administer with meals Start: 04-29-2020 End: 07-06-2021 take 1500 mg by mouth twice daily at mealtime Cranberry Discontinued 1500 MG PO TWICE A DAY April 29, 2020 1:00am July 06, 2021 3:13pm administer with meals doxycycline hyclate 20 mg oral tablet (9 sources) Tetracycline-class Drug Start: 07-06-2021 End: 07-27-2022 take 20 mg by mouth twice daily Doxycycline Hyclate Discontinued 20 MG PO TWICE A DAY July 05, 2021 11:00pm July 27, 2022 7:33am norethindrone acetate 5 mg oral tablet (9 sources) Start: 07-20-2021 End: 07-27-2022 take 1 tablet by mouth three times daily, then take 1 tablet by mouth twice daily Norethindrone Acetate (Aygestin) 5 mg tablet Discontinued 5 MG PO .COMPLEX 45 July 19, 2021 11:00pm July 27, 2022 7:33am 5 mg PO tid until bleeding stops X 24 hr then bid to finish Rx Problems Problem Classification Problem Date Documented Da te Episodic/Chronic Disorders of lipid metabolism (12 sources) Hyperlipidemia; Translations: [Hyperlipidemia, unspecified] Chronic Menopausal disorders (3 sources) Menopausal syndrome; Translations: [Menopausal and female climacteric states] Onset: 08-13-2024 07-27-2022 Chronic Other female genital disorders (9 sources) Abnormal uterine bleeding; Translations: [Abnormal uterine and vaginal bleeding, unspecified] 07-20-2021 Chronic Other female genital disorders (7 sources) Abnormal uterine and vaginal bleeding, unspecified; Translations: [Unspecified disorders of menstruation and other abnormal bleeding from female genital tract] Chronic Other nutritional; endocrine; and metabolic disorders (1 source) Abnormal weight gain; Translations: [Abnormal weight gain] Onset: 08-18-2024 Episodic Other screening for suspected conditions (not mental disorders or infectious disease) (1 source) Encounter for screening mammogram for malignant neoplasm of breast; Translations: [Encounter for screening mammogram for malignant neoplasm of breast] Onset: 06-19-2024 Episodic Ovarian cyst (9 sources) Ruptured cyst of ovary; Translations: [Unspecified ovarian cyst, unspecified side] 08-06-2015 Episodic Residual codes; unclassified (7 sources) Flushing; Translations: [Flushing] 07-06-2021 Episodic Residual codes; unclassified (4 sources) Flushing; Translations: [Flushing] Onset: 08-13-2024 Episodic Residual codes; unclassified (1 source) Family history of malignant neoplasm of breast; Translations: [Family history of malignant neoplasm of breast] Onset: 08-13-2024 Episodic Results Test Name Value Interpretation Reference Range Facility Thyroid Peroxidase ABon 05-0 THYR PEROX AB < 9 Normal 0-34 [facility] Comment on above: Result Comment: Perf ormed at: [facility] [id number] Roll Cutter: Mohan Grider PhD, Phone: [phone] Performed By: #### L [id number], L900.0098, L506.0400, L3300.6900 #### [facility] [address] [place], [place], [id number] NATERAon 08-13-2024 NATURA SEE SCANNED REPORT Normal [facility] Comment on above: Order Comment: Comme nts: Empower Performed By: #### L [id number], L900.0098, L506.0400, L3300.6900 #### [facility] [address] 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 Is patient in pain?: No Allergies No Known Allergies Allergy (Verified 08/13/24 13:31) Medications ???Medication ???Instructions ???Recorded ???Confirmed ???Type trazodone 100 mg tablet 100 mg PO QHS 08/05/15 08/13/24 Hi story fexofenadine 180 mg tablet 180 mg PO DAILY 04/24/19 08/13/24 History (Mariann Allergy) cholecalciferol (vitamin D3) 125 125 mcg PO DAILY 04/29/20 08/13/24 History mcg (5,000 unit) capsule lisinopril 20 mg tablet 20 mg PO DAILY 04/29/20 08/13/24 H istory multivitamin 1 tab PO DAILY 04/29/20 08/13/24 H istory psyllium husk 0.4 gram capsule 0.4 g PO DAILY 07/06/21 08/13/24 H istory (Metamucil) Saccharomyces boulardii 250 mg 250 mg PO BID 07/27/22 08/13/24 Hi story capsule (Daily Probiotic (S. boulardii)) venlafaxine 75 mg capsule,extended 37.5 mg PO DAILY 08/09/23 History release 24 hr Is last menstrual period known: No Post menopausal: No Patient : No : No PFSH Medical History (Updated 08/13/24 @ 13:45 by Shikha Trinh NP, VEST BASTER-C) Depression Surgical History S/P eye surgery delivery delivered Tubal ligation status Family History (Updated 08/13/24 @ 13:29 by Isabel Alfaro) Mother Breast cancer Diabetes Heart disease Hypertension Cancer skin Father Liver disease Kidney disease [place] lung Brother Cancer Polyp of the colon Social History Smoking Status: Never smoker alcohol intake: never substance use type: does not use caffeine: Yes what type of physical activity do you participate in: walking seatbelt use: always do you feel safe at home: Yes additional social history: Giovani Ross 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 Date Name GA/Weeks Outcome Route Bth Weight Gen Labor Lgth Anesthesia Del Locatn Provider FOB Unknown 2000 Olvin live - full term Unknown 2002 Trevor live - full term HPI Encounter for routine gynecological examination Details: GARCIA BELLE is a 48 year old who presents for annual exam. Hot flashes more problematic. Menses very irregular. Is now interested in empower genetic testing. Last PAP: 2020 History of abnormal PAP: no Last mammogram: 05/2024 History of abnormal mammogram: no Colon cancer screenin Other preventative health care screenings: Brett Female Reproductive History Questions: metorrhagia: No, sexually active: Yes, dyspareunia: No and PCB: No Menopausal Symptoms: Yes night sweats ROS Const Constitutional: Reports fatigue, night sweats and weight gain; Denies weight loss Cardio Card: Denies chest pain Resp Resp: Denies cough or dyspnea on exertion GI GI: Denies abdominal pain, bloating, change in stool character, constipation or vomiting : Reports as per HPI; Denies difficulty voiding, pelvic pain, urinary frequency, urinary incontinence, urinary urgency, vaginal discharge or vaginal pruritus Exam Const General: cooperative, healthy appearing, no acute distress and well developed Orientation: alert, oriented to person and oriented to place [facility] Head: normal to inspection Neck Neck: normal visual inspection Thyroid: thyroid normal Lymphatic: no lymphadenopathy noted Chest Breast inspection: normal inspection of the breasts and normal inspection of the axillae Breast palpation: normal palpation of the breasts, normal palpation of the axillae and no axillary lymphadenopathy Resp Effort Inspection: normal respiratory effort GI Palpation: soft, no masses and nontender Rectal Exam: deferred External Female Exam: normal external appearance and normal appearance of the urethra Urethra: normal appearance of the urethra and normal palpation Speculum Exam - Vagina: normal appearance of the vagina and normal vaginal discharge Speculum Exam - Cervix: normal appearance of the cervix Bimanu (more content not included)... Normal [facility] T4 Free Directon 08-13-2024 T4 FREE DIRECT 0.90 ng/dL Normal 0.76-1.46 [facility] Comment on above: Order Comment: Empow er Performed By: #### L 501.9520, L900.0098, L506.0400, L3300.6900 #### [facility] [address] [place], [address] Thyroid Stim Hormone (TSH)on 08-13-2024 TSH 1.620 uIU/mL Normal 0.300-4.200 [facility] Comment on above: Performed By: #### L [id number], L900.0098, L506.0400, L3300.6900 #### [facility] [address] [place], [address] SCRN MAMM (CAD)W/PRESTON BILATo n 06-05-2024 SCRN MAMM (CAD)W/PRESTON BILAT [facility] [address] [place], [place] [id number] SCRN MAMM (CAD)W/PRESTON BILAT MR#: [id number] Acct: [id number] Name: GARCIA BELLE Rep #: [id number] : 1975 F 48 From: Florian veliz MD PCP: Dr. Rakesh West MD Status: [facility] Study: SCRN MAMM (CAD)W/PRESTON BILAT Date of Exam: 05/18 Exam# [id number] Ordering Dr: Shikha Trinh VEST BASTER VEST BASTER -C PROCEDURE: SCRN MAMM (CAD)W/PRESTON BILAT REASON FOR EXAM: F, Age 48 y/o, mother with breast cancer. TECHNIQUE: Bilateral screening digital breast tomosynthesis with 2D and 3D images. Computer aided detection. COMPARISON: Prior exam(s) dating back to June 01, 2023.. FINDINGS: There are scattered areas of fibroglandular density. Stable examination. No suspicious masses, areas of developing architectural distortion, or suspicious calcifications. BI/SCRN MAMM (CAD)W/PRESTON BILAT IMPRESSION: BI-RADS 1: NEGATIVE. RECOMMEND ANNUAL MAMMOGRAPHIC SCREENING. Follow-up code: Routine Follow-up The patient will be notified of the results by letter. Reading Location: [id number] CC: VERONICA Trinh; Dr. Rakesh West MD Kettle Chipper: Signed Normal [facility] Comprehensive Metabolic Prof ilon 03-21-2024 Albumin [Mass/Vol] 4.0 g/dL Normal 3.2-5.0 [facility] Comment on above: Performed By: #### L 500.4050, L501.9520, L500.4100, L506.1000 #### [facility] [address] [place], [address] Albumin/Globulin [Mass ratio] 1.3 {ratio} Normal 0.9-2.4 [facility] Comment on above: Performed By: #### L 500.4050, L501.9520, L500.4100, L506.1000 #### [facility] [address] [place], [address] ALK P 83 U/L Normal 45-117 [facility] Comment on above: Performed By: #### L 500.4050, L501.9520, L500.4100, L506.1000 #### [facility] [address] [place], [address] ALT [Catalytic activity/Vol] 22 U/L Normal 13-56 [facility] Comment on above: Performed By: #### L 500.4050, L501.9520, L500.4100, L506.1000 #### [facility] [address] [place], [address] AST [Catalytic activity/Vol] 21 U/L Normal 15-37 [facility] Comment on above: Performed By: #### L 500.4050, L501.9520, L500.4100, L506.1000 #### [facility] [address] [place], [address] Bilirubin [Mass/Vol] 0.50 mg/dL Normal 0.20-1.00 [facility] Comment on above: Result Comment: For patients on eltrombopag therapy, use of Dimension Mitchell TBIL is not recommended. Performed By: #### L 500.4050, L501.9520, L500.4100, L506.1000 #### [facility] [address] [place], [address] BUN/CRE 20.4 RATIO High 10-20 [facility] Comment on above: Performed By: #### L 500.4050, L501.9520, L500.4100, L506.1000 #### [facility] [address] [place], [address] CA,Total 9.1 mg/dL Normal 8.5-10.1 [facility] Comment on above: Performed By: #### L 500.4050, L501.9520, L500.4100, L506.1000 #### [facility] [address] [place], [address] Chloride [Moles/Vol] 105 mmol/L Normal 98-107 [facility] Comment on above: Performed By: #### L 500.4050, L501.9520, L500.4100, L506.1000 #### [facility] [address] [place], [address] CO2 [Moles/Vol] 28.0 mmol/L Normal 21.0-32.0 [facility] Comment on above: Performed By: #### L 500.4050, L501.9520, L500.4100, L506.1000 #### [facility] [address] [place], [address] Creatinine [Mass/Vol] 1.03 mg/dL High 0.55-1.02 [facility] Comment on above: Result Comment: The validity of the calculated GFR GFRAA in patients over 70 years has not been determined. Clinical correlation is essential. Performed By: #### L 500.4050, L501.9520, L500.4100, L506.1000 #### [facility] [address] [place], [address] EST GFR - AA 73 mL/min Normal >60 [facility] Comment on above: Result Comment: Afri can Solomon Islander GFR Calc Performed By: #### L 500.4050, L501.9520, L500.4100, L506.1000 #### [facility] [address] [place], [address] GAP 7 Normal 5-15 [facility] Comment on above: Performed By: #### L 500.4050, L501.9520, L500.4100, L506.1000 #### [facility] [address] [place], [address] GFR/1.73 sq M.predicted among non-blacks MDRD (S/P/Bld) [Vol rate/Area] 60 mL/min/{1.73_m2} Normal >60 [facility] Comment on above: Result Comment: Non- GFR Calc Performed By: #### L 500.4050, L501.9520, L500.4100, L506.1000 #### [facility] [address] [place], [address] Globulin (S) [Mass/Vol] 3.0 g/dL Normal 2.2-4.2 [facility] Comment on above: Performed By: #### L 500.4050, L501.9520, L500.4100, L506.1000 #### [facility] [address] [place], [address] Glucose [Mass/Vol] 92 mg/dL Normal 74-106 [facility] Comment on above: Performed By: #### L 500.4050, L501.9520, L500.4100, L506.1000 #### [facility] [address] [place], [address] Potassium [Moles/Vol] 4.1 mmol/L Normal 3.5-5.1 [facility] Comment on above: Performed By: #### L 500.4050, L501.9520, L500.4100, L506.1000 #### [facility] [address] [place], [address] Sodium [Moles/Vol] 140 mmol/L Normal 136-145 [facility] Comment on above: Performed By: #### L 500.4050, L501.9520, L500.4100, L506.1000 #### [facility] [address] [place], [address] T PROT 7.0 g/dL Normal 6.4-8.2 [facility] Comment on above: Performed By: #### L 500.4050, L501.9520, L500.4100, L506.1000 #### [facility] [address] [place], [address] Urea nitrogen [Mass/Vol] 21 mg/dL High 7-18 [facility] Comment on above: Performed By: #### L 500.4050, L501.9520, L500.4100, L506.1000 #### [facility] [address] [place], [address] Lipid Profileon 03-21-2024 Cholesterol [Mass/Vol] 241 mg/dL High 200 [facility] Comment on above: Result Comment: <200 mg/dL Desirable 200-240 mg/dL Borderline >240 mg/dL High Risk Performed By: #### L 500.4050, L501.9520, L500.4100, L506.1000 #### [facility] [address] [place], [address] Cholesterol in HDL [Mass/Vol] 62 mg/dL Normal [facility] Comment on above: Result Comment: The drugs N-Acetylcysteine and Metamizole may falsely depress this assay. Reference Range HDL <40 mg/dL Low HDL Cholesterol HDL >or= 60 mg/dL High HDL Cholesterol Performed By: #### L 500.4050, L501.9520, L500.4100, L506.1000 #### [facility] [address] [place], [address] Cholesterol in LDL [Mass/Vol] 154 mg/dL High 0-130 [facility] Comment on above: Performed By: #### L 500.4050, L501.9520, L500.4100, L506.1000 #### [facility] [address] [place], [address] Cholesterol in VLDL [Mass/Vol] 25 mg/dL Normal 5-40 [facility] Comment on above: Performed By: #### L 500.4050, L501.9520, L500.4100, L506.1000 #### [facility] [address] [place], [address] Triglyceride [Mass/Vol] 126 mg/dL Normal [facility] Comment on above: Result Comment: The drugs N-Acetylcysteine and Metamizole may falsely depress this assay. Serum Triglycerides Reference Interval Normal <150 mg/dL Borderline high 150 - 199 mg/dL High 200 - 499 mg/dL Very High > or = 500 mg/dL Performed By: #### L 500.4050, L501.9520, L500.4100, L506.1000 #### [facility] [address] [place], [address] Thyroid Stim Hormone (TSH)on 03-21-2024 TSH 1.490 uIU/mL Normal 0.358-3.740 [facility] Comment on above: Performed By: #### L 500.4050, L501.9520, L500.4100, L506.1000 #### [facility] [address] [place], [address] Vitamin D,25 Hydroxyon 03-21 Vitamin D 25-OH 77.7 ng/mL Normal [facility] Comment on above: Result Comment: Margi min D 25(OH) Status Range Deficiency <20 ng/mL (50nmol/L) Insufficiency 20 - 30 ng/mL (50 - 75 nmol/L) Sufficiency 30 - 100 ng/mL (75 - 250 nmol/L) Toxicity >100 ng/mL (>250 nmol/L) Performed By: #### L 500.4050, L501.9520, L500.4100, L506.1000 #### [facility] [address] [place], [address] Basophil percentageOrdered B y: Marck West on 04-05-2023 Chloride [Moles/Vol] 104 mmol/L 98-107 [facility] Cholesterol [Mass/Vol] 234 mg/dL <200 [facility] Comment on above: <200 mg/dL Desirable 200-240 mg/dL Borderline >240 mg/dL High Risk Glucose [Mass/Vol] 94 mg/dL 74-106 [facility] Potassium [Moles/Vol] 3.9 mmol/L 3.5-5.1 [facility] Sodium [Moles/Vol] 140 mmol/L 136-145 [facility] Triglyceride [Mass/Vol] 119 mg/dL <199 [facility] Comment on above: The drugs N-Acetylcy steine and Metamizole may falsely depress this assay.Serum Triglycerides Reference Interval Normal <150 mg/dL Borderline high 150 - 199 mg/dL High 200 - 499 mg/dL Very High > or = 500 mg/dL Laboratory - Chemistry and C hemistry - challengeOrdered By: Marck West on 04-05-2023 CO2 [Moles/Vol] 31.0 mmol/L 21.0-32.0 [facility] Urea nitrogen/Creatinine [Mass ratio] 17.6 mg/mg 10- [facility] No Panel InformationOrdered By: Marck West on 04-05-2023 Estimated GFR (MDRD) Amer 70 mL/min >60 [facility] Comment on above: GFR Calc Estimated GFR (MDRD) Non-Af Amer 58 mL/min >60 [facility] Comment on above: Non- GFR Calc Thyroid Stimulating Hormone (TSH) 1.22 uIU/mL 0.358-3.74 [facility] Vitamin D 25-Hydroxy 89.1 ng/mL [facility] Comment on above: Vitamin D 25(OH) Sta tus Range Deficiency <20 ng/mL (50nmol/L) Insufficiency 20 - 30 ng/mL (50 - 75 nmol/L) Sufficiency 30 - 100 ng/mL (75 - 250 nmol/L) Toxicity >100 ng/mL (>250 nmol/L) Serum or plasma calcium carline urement (mass/volume)Ordered By: Marck West on 04-05-2023 Calcium [Mass/Vol] 9.5 mg/dL 8.5-10.1 [facility] Serum or plasma cholesterol in HDL measurement (mass/volume)Ordered By: Marck West on 04-05-2023 Cholesterol in HDL [Mass/Vol] 50 mg/dL >40 [facility] Comment on above: The drugs N-Acetylcy steine and Metamizole may falsely depress this assay. Reference Range HDL <40 mg/dL Low HDL Cholesterol HDL >or= 60 mg/dL High HDL Cholesterol Serum or plasma cholesterol in VLDL measurement (mass/volume)Ordered By: Marck West on 04-05-2023 Cholesterol in VLDL [Mass/Vol] 24 mg/dL 5-40 [facility] Serum or plasma creatinine m easurement (mass/volume)Ordered By: Marck West on 04-05-2023 Creatinine [Mass/Vol] 1.08 mg/dL 0.55-1.02 [facility] Comment on above: The validity of the calculated GFR & GFRAA in patients over 70 years has not been determined. Clinical correlation is essential. Serum or plasma low density lipoprotein (LDL) cholesterol measurement (mass/volume)Ordered By: Marck West on 04-05-2023 Cholesterol in LDL [Mass/Vol] 160 mg/dL 0-130 [facility] Serum or plasma urea nitroge n measurement (mass/volume)Ordered By: Marck West on 04-05-2023 Urea nitrogen [Mass/Vol] 19 mg/dL 7-18 [facility] Thin prep Papanicolaou smear with manual screeningOrdered By: Marck West on 04-05-2023 Thin prep Papanicolaou smear with manual screening 5 5-15 [facility] - Chemistry and C hemistry - challengeon 07-20-2021 HCG ( test) Ql (U) Negative [facility] Work Phone: Absolute lymphocyte counton 07-14-2021 Lymphocytes Auto (Unsp spec) [#/Vol] 1.76 10*3/uL 0.83-4.51 [facility] Work Phone: Basophil percentageon 2021 Basophils/100 WBC (Bld) 0.5 % 0-1 [facility] Work Phone: Cholesterol [Mass/Vol] 210 mg/dL <200 [facility] Work Phone: Comment on above: <200 mg/dL Desirable 200-240 mg/dL Borderline >240 mg/dL High Risk Eosinophils/100 WBC (Bld) 0.9 % 0-5 [facility] Work Phone: Neutrophils (Bld) [#/Vol] 3.4 10*3/uL 2.0-7.7 [facility] Work Phone: Neutrophils/100 WBC (Bld) 59.4 % 47-70 [facility] Work Phone: Triglyceride [Mass/Vol] 67 mg/dL [facility] Work Phone: Comment on above: The drugs N-Acetylcy steine and Metamizole may falsely depress this assay.Serum Triglycerides Reference Interval Normal <150 mg/dL Borderline high 150 - 199 mg/dL High 200 - 499 mg/dL Very High > or = 500 mg/dL WBC (Bld) [#/Vol] 5.7 10*3/uL 4.4-11.0 [facility] Work Phone: Blood erythrocytes count (nu mber/volume)on 07-14-2021 RBC (Bld) [#/Vol] 4.92 10*6/uL 4.2-5.4 [facility] Work Phone: Blood hemoglobin measurement (mass/volume)on 07-14-2021 Hemoglobin (Bld) [Mass/Vol] 14.2 g/dL 12.0-15.0 [facility] Work Phone: Blood lymphocytes/100 leukoc yteson 07-14-2021 Lymphocytes/100 WBC (Bld) 30.9 % 19-41 [facility] Work Phone: Blood monocytes/100 leukocyt eson 07-14-2021 Monocytes/100 WBC (Bld) 7.9 % 0-10 [facility] Work Phone: Blood platelet mean volumeon 07-14-2021 Platelet mean volume (Bld) [Entitic vol] 10.0 fL 6.2-12.0 [facility] Work Phone: Determination of erythrocyte mean corpuscular volume (MCV)on 07-14-2021 MCV (RBC) [Entitic vol] 84.3 fL 81-99 [facility] Work Phone: Hematocrit Auto (Bld) [Volum e fraction]on 07-14-2021 Hematocrit (Bld) [Volume fraction] 41.5 % 37-47 [facility] Work Phone: Laboratory - Hematology and Cell countson 07-14-2021 Erythrocyte distribution width (RBC) [Entitic vol] 39.5 fL 35.1-43.9 [facility] Work Phone: Erythrocyte distribution width (RBC) [Ratio] 12.9 % 11.6-14.6 [facility] Work Phone: Immature granulocytes/100 WBC (Bld) 0.400 % 0.0-0.9 [facility] Work Phone: Comment on above: IG% - Immature Granu locytes (promyelocytes, myelocytes and metamyelocytes) > 1% indicates that a LEFT SHIFT is Present. MCH (RBC) [Entitic mass] 28.9 pg 27.0-32.0 [facility] Work Phone: Nucleated RBC/100 WBC (Bld) [Ratio] 0 % 0-5 [facility] Work Phone: MCHC Auto (RBC) [Mass/Vol]on 07-14-2021 MCHC (RBC) [Mass/Vol] 34.2 g/dL 32-36 [facility] Work Phone: No Panel Informationon 07-14 Thyroid Stimulating Hormone (TSH) 1.30 uIU/mL 0.358-3.74 [facility] Work Phone: Platelets bldon 07-14-2021 Platelets (Bld) [#/Vol] 262 10*3/uL 150-450 [facility] Work Phone: Serum or plasma cholesterol in HDL measurement (mass/volume)on 07-14-2021 Cholesterol in HDL [Mass/Vol] 55 mg/dL [facility] Work Phone: Comment on above: The drugs N-Acetylcy steine and Metamizole may falsely depress this assay. Reference Range HDL <40 mg/dL Low HDL Cholesterol HDL >or= 60 mg/dL High HDL Cholesterol Serum or plasma cholesterol in VLDL measurement (mass/volume)on 07-14-2021 Cholesterol in VLDL [Mass/Vol] 13 mg/dL 5-40 [facility] Work Phone: Serum or plasma low density lipoprotein (LDL) cholesterol measurement (mass/volume)on 07-14-2021 Cholesterol in LDL [Mass/Vol] 142 mg/dL 0-130 [facility] Work Phone: Culture, urine Bacteria identified Cx Nom (U) Presumptive E. coli [facility] Work Phone: Vital Signs Date Time Vital Sign Value Performing Clinician Faci lity 07-20-2021 13:41-0400 Body height 154.[address] Marck West Work Phone: [facility] Work Phone: 07-20-2021 13:41-0400 Body mass index (BMI) [Ratio] 26.6 kg/m2 Dr. Marck West Work Phone: [facility] Work Phone: 07-20-2021 13:41-0400 Body weight 64.[address] Marck West Work Phone: [facility] Work Phone: 07-20-2021 13:41-0400 Diastolic blood pressure 70 mm[Hg] Dr. Marck West Work Phone: [facility] Work Phone: 07-20-2021 13:41-0400 Systolic blood pressure 110 mm[Hg] Dr. Marck West Work Phone: [facility] Work Phone: 07-20-2021 13:41-0400 Body height 154.[address] Marck West Work Phone: [facility] Work Phone: 07-20-2021 13:41-0400 Body mass index (BMI) [Ratio] 26.6 kg/m2 Dr. Marck West Work Phone: [facility] Work Phone: 07-20-2021 13:41-0400 Body weight 64.[address] Marck West Work Phone: [facility] Work Phone: 07-20-2021 13:41-0400 Diastolic blood pressure 70 mm[Hg] Dr. Marck West Work Phone: [facility] Work Phone: 07-20-2021 13:41-0400 Systolic blood pressure 110 mm[Hg] Dr. Marck West Work Phone: [facility] Work Phone: 07-06-2021 15:16-0400 Body mass index (BMI) [Ratio] 26.4 kg/m2 Dr. Marck West Work Phone: [facility] Work Phone: 07-06-2021 15:16-0400 Body weight 63.[address] Marck West Work Phone: [facility] Work Phone: 07-06-2021 15:16-0400 Diastolic blood pressure 78 mm[Hg] Dr. Marck West Work Phone: [facility] Work Phone: 07-06-2021 15:16-0400 Systolic blood pressure 130 mm[Hg] Dr. Marck West Work Phone: [facility] Work Phone: Encounters Encounter Date Encounter Type Care Provider Facility Start: 08-13-2024 Encounter for gynecological examination (general) (routine) with abnormal findings [facility] Start: 08-13-2024 End: 08-13-2024 ambulatory David Brett [place] [place]: 08-13-2024 End: 08-13-2024 ambulatory [facility] Facility:[facility] Start: 06-05-2024 End: [facility] Start: 04-22-2024 Encounter for genera l adult medical examination without abnormal findings [facility] Start: 03-21-2024 End: 03-21-2024 ambulatory [facility] Facility:[facility] Start: 06-01-2023 End: 06-01-2023 ambulatory [facility] Work Phone: Start: 06-01-2023 End: 06-01-2023 Patient encounter procedure [facility] Work Phone: Start: 04-05-2023 End: 04-05-2023 ambulatory [facility] Work Phone: Start: 04-05-2023 End: 04-05-2023 Patient encounter procedure [facility] Start: 05-26-2022 End: 05-26-2022 ambulatory [facility] Work Phone: Start: 05-26-2022 End: 05-26-2022 Patient encounter procedure [facility] Start: 11-09-2021 End: 11-09-[address] Marck West Work Phone: [facility]-Laboratory, Specimen Start: 07-20-2021 End: 07-20-[address] [facility] Start: 07-20-2021 End: 07-20-[address] Marck West Work Phone: [facility] Start: 07-14-2021 End: 07-14-[address] Marck West Work Phone: [facility] Start: 07-13-2021 End: 07-13-[address] Marck West Work Phone: [facility]-Ultrasound, [facility] Start: 07-06-2021 End: 07-06-[address] Marck West Work Phone: [facility] Start: 06-01-[address] Wagner West Work Phone: [facility]-Massage Therapy, [facility] Start: 05-20-2021 End: 05-20-[address] Marck West Work Phone: [facility] Procedures Date Procedure Procedure Detail Performing Clinician Start: 06-01-2023 Screening mammography Start: 05-26-2022 Screening mammography Start: 07-13-[address] Antonio West Work Phone: Start: 07-13-[address] Marck West Work Phone: Start: 05-20-2021 Screening mammography Elizabeth West Work Phone: Urine culture Dr. Marck West Work Phone: Payers Date Payer Category Payer Self-pay [id number] 2024 Unknown [id number] 2016 Unknown [id number] Unknown [facility] [employer] [id number] Unknown [id number] Unknown [id number] Unknown [id number] Unknown [id number] Social History Date Type Detail Facility Start: 07-06-2021 End: 07-27-2022 Tobacco smoking status PAIS Unknown if ever smoked [facility] Start: 1975 Sex Assigned At Female [facility] Evaluation note Note Date & Type Note Facility Evaluation note Diagnosis Onset Date Abnormal uterine bleeding (AUB) acute Hot flashes acute Hyperlipidemia acute Abnormal uterine bleeding (AUB) acute [facility] Work Phone: Evaluation note Note Date & Type Note Facility Evaluation note Diagnosis Onset Date Abnormal uterine bleeding (AUB) acute [facility] Work Phone: Evaluation note Note Date & Type Note Facility Evaluation note No assessment information availa johanna [facility] Work Phone: Chief Complaint and Reason for Visit Chief Complaint SCREENING SP Annual ([employer]) AUB EORDER EMB Reason for Visit Abnormal uterine ble eding (AUB) Hot flashes Hyperlipidemia Abnormal uterine bleeding (AUB) Chief Complaint EMB Reason for Visit Abnormal uterine ble eding (AUB) Chief Complaint SCREENING Chief Complaint SCREENING Family History No Family History Records Found Relationship Condition Age at Onset Recorded Date/T rachel mother Malignant neoplasm of breast Unknown Diabetes mellitus Unknown Cardiac disease Unknown Hypertension Unknown Malignant neoplasm Unknown father Disorder of liver Unknown Kidney disorder Unknown [place] lung Unknown Summary Purpose Advance Directives No Advanced Directives Records Found Additional Source Comments Goals (unrecognized section and content) Goals may be documented in a n alternate sectionGoals may be documented in an alternate sectionGoals may be documented in an alternate sectionGoals may be documented in an alternate sectionGoals may be documented in an alternate sectionGoals may be documented in an alternate sectionGoals may be documented in an alternate section Care Teams (unrecognized sec tion and content) Team Status: Active Member Role Status Dates Dr. Marck West MD Family Provider Active Dr. Marck West MD Primary Care Provider Activ e Team Status: Inactive Member Role Status Dates Dr. Marck West MD Primary Care Provider Activ e Shikha Trinh VEST BASTER, VEST BASTER-C Attending Provider, Referring Provider Active Team Status: Inactive Member Role Status Dates Dr. Marck West MD Primary Care Provider, Atte nding Provider Active INFORMATION SOURCE (unrecogn ized section and content) DATE CREATED AUTHOR 08/21/2024 [facility] FOR RECORDS PERTAINING TO PATIENTS WHO ARE OR HAVE BEEN ENROLLED IN A CHEMICAL DEPENDENCY/SUBSTANCEABUSE PROGRAM, SOME INFORMATION MAY BE OMITTED. This clinical summary was aggregated from multiple sources. Caution should be exercised in using it in the provision of clinical care. This summary normalizes information from multiple sources, and as a consequence, information in this document may materially change the coding, format and clinical context of patient data. In addition, data may be omitted in some cases. CLINICAL DECISIONS SHOULD BE BASED ON THE PRIMARY CLINICAL RECORDS. [facility]. provides no warranty or guarantee of the accuracy or completeness of information in this document.
[2025-04-02 12:36] LABS: AST(SGOT) 31 U/L (<=31); Alanine Aminotransfer ALT/SGPT 26 U/L (<=34); Albumin, Serum 4.5 g/dL (3.5-5.0); Alkaline Phosphatase 92 U/L (35-104); Anion Gap 12 (5-15); BUN 16 mg/dL (4-19); BUN/Creat Ratio 16.2 RATIO (10-20); Calcium,Total 9.2 mg/dL (7.6-11.0); Carbon Dioxide 27.2 mmol/L (21.0-32.0); Chloride 100 mmol/L (98-108); Cholesterol 269 mg/dL (<=200); Globulin 2.6 g/dL (2.2-4.2); Glucose 93 mg/dL (70-99); Low Density Lipoprotein Calc. 190 mg/dL; Potassium 4.2 mmol/L (3.3-5.1); Triglycerides 129 mg/dL; Very Low Density Lipoprotein 26 mg/dL (5-40); Vitamin D,25 Hydroxy 75.6 ng/mL (30-100); cholesterol:hdl ratio screen 4.86
== END | disposition home or self-care (01) ==
LOC: MTLAB 07:26
PROVIDERS: PCP Family Medicine; Referring Provider Family Medicine; Visit Provider Family Medicine
DX: R23.2 Flushing (principal); I10 Essential (primary) hypertension
CPT/HCPCS: 36415; 80053; 80061; 82306; 84443